=== PATIENT | female | born 1965 | race Two or more races ===

== ENCOUNTER 2018-11-11 10:15 | Day surgery (SDC) | payer OTHER | END 2018-11-11 17:10 | disposition home or self-care (01) | LOC: AMB-ENDOS 10:15 | DX: D13.1 Benign neoplasm of stomach (principal); K44.9 Diaphragmatic hernia without obstruction or gangrene ==

== ENCOUNTER 2019-05-19 07:35 | Outpatient (CLI) | payer OTHER | END 2019-05-19 07:40 | disposition home or self-care (01) | LOC: SONOGRAMA 07:35 | DX: E04.2 Nontoxic multinodular goiter (principal) ==

== ENCOUNTER 2020-07-20 05:57 | Day surgery (SDC) | payer OTHER ==
[~2020-07-20 05:57] MED LIST: DIOVAN HCT 3201 EAC1 PO; NIFEDIPINE20 MG PO; SYNTHROID100 MCG PO
== END 2020-07-20 16:15 | disposition home or self-care (01) ==
LOC: CIR.AMB 05:57
PROVIDERS: ATTEND Plastic Surgery
DX: E65 Localized adiposity (principal); M62.08 Separation of muscle (nontraumatic), other site; Z20.828 Contact with and (suspected) exposure to other viral communicable diseases

== ENCOUNTER 2020-10-19 05:30 | Inpatient (IN) | payer OTHER ==
[~2020-10-19] VITALS: Ht 160 cm; Wt 82.1 kg
[~2020-10-19 05:30] MED LIST changes: +LIPITOR80 MG PO; +VITAMIND PO
== END 2020-10-20 14:00 | disposition home or self-care (01) | DRG 584 ==
LOC: CIR.AMB 05:30 → SURH 18:52
PROVIDERS: ADMIT Plastic Surgery; ATTEND Plastic Surgery
PROC: 0H0V0ZZ Alteration of Bilateral Breast, Open Approach (ICD-10-PCS; principal; 2020-10-19 09:45)
DX: N62 Hypertrophy of breast (principal); I97.88 Other intraoperative complications of the circulatory system, not elsewhere classified; Z79.01 Long term (current) use of anticoagulants; I48.0 Paroxysmal atrial fibrillation

== ENCOUNTER 2024-09-22 12:28 | Outpatient (CLI) | payer OTHER | END 2024-09-22 12:34 | disposition home or self-care (01) | LOC: RAD 12:28 | PROVIDERS: ATTEND Internal Medicine | DX: M79.605 Pain in left leg (principal) ==

== ENCOUNTER 2024-10-03 13:56 | Outpatient (CLI) | payer OTHER | END 2024-10-03 14:05 | disposition home or self-care (01) | LOC: RAD 13:56 | PROVIDERS: ATTEND Orthopaedic Surgery | DX: Z76.89 Persons encountering health services in other specified circumstances (principal); M25.511 Pain in right shoulder; M79.672 Pain in left foot; M20.12 Hallux valgus (acquired), left foot ==

== ENCOUNTER → 2024-10-10 09:03 | Outpatient (CLI) | payer OTHER ==
[2024-10-10 10:22] LABS: HEMATOCRIT 38.5 % (36.0-45.00); HEMOGLOBIN 12.5 g/dL (12.0-15.00); MEAN CELL VOLUME 83.4 fL (80.00-100.00); MEAN CORPUSCULAR HEMOGLOBIN 27.1 pg (27.00-32.0); MEAN CORPUSCULAR HGB CONC 32.4 g/dl (32.0-36.0); PLATELET COUNT 257 K/uL (150-450); RED BLOOD COUNT 4.61 M/uL (4.00-6.00)
[2024-10-10 10:24] LABS: RED CELL DISTRIBUTION WIDTH 19.7 % (11.5-14.5)
[2024-10-10 10:31] LABS: COL EPI 117 SECONDS (82-175)
[2024-10-10 10:43] LABS: PARTIAL THROMBOPLASTIN TIME 25.7 SECONDS (22.0-34.0); PROTHROMBIN TIME 10.9 SECONDS (9.0-11.5)
[2024-10-10 11:05] LABS: PH,URINE 5.5 (5.0-8.0); URINE APPEARANCE Clear; URINE BILIRRUBIN Negative (NEGATIVE); URINE BLOOD Negative; URINE COLOR Yellow; URINE GLUCOSE Negative (NEGATIVE); URINE KETONE Negative (NEGATIVE); URINE LEUKOCYTE Small; URINE NITRATE Negative; URINE PROTEIN Negative (NEGATIVE); URINE UROBILINOGEN 0.2 E.U./dl
[2024-10-10 11:06] LABS: ALBUMIN 3.8 gm/dL (3.4-5.0); BILIRUBIN TOTAL 0.46 mg/dL (0.3-1.2); CALCIUM 8.8 mg/dL (8.5-10.1); CREATININE SERUM 1.24 mg/dL (0.55-1.02); GFR 43.97; POTASSIUM 4.15 mEq/L (3.5-5.1); TOTAL PROTEIN 6.8 gm/dL (6.4-8.2); URINE BACTERIA 13.4 uL (0.0-1933); URINE EPITHELIAL CELLS 4.2 uL (0.0-38.8); URINE RBC 9.2 uL (0.0-20.8); URINE WBC 14.5 uL (0.0-23.2)
[2024-10-10 12:50] LABS: URINE CAST 0.88 uL (0.0-1.40)
== END | disposition home or self-care (01) ==
LOC: LAB 09:03
PROVIDERS: ATTEND Orthopaedic Surgery
DX: D64.9 Anemia, unspecified (principal); E88.89 Other specified metabolic disorders; D68.8 Other specified coagulation defects; N39.0 Urinary tract infection, site not specified; Z22.322 Carrier or suspected carrier of Methicillin resistant Staphylococcus aureus; E11.9 Type 2 diabetes mellitus without complications

== ENCOUNTER 2024-10-28 10:14 | Outpatient (CLI) | payer OTHER | END 2024-10-28 10:15 | disposition home or self-care (01) | LOC: LAB 10:14 | PROVIDERS: ATTEND Orthopaedic Surgery | DX: Z22.322 Carrier or suspected carrier of Methicillin resistant Staphylococcus aureus (principal) ==